=== PATIENT | female | born 1960 | race Caucasian/White ===

== ENCOUNTER 2017-06-09 12:20 | Inpatient (IN) | payer BC, OTHER ==
[~2017-06-09] VITALS: Ht 152.4 cm; Wt 61.2 kg
--- NOTE | ~2017-06-09 | HC ---
[facility] [place] [address] CONSULTATION Name: ADOLFO TAVARES Room #: 427-P [place] IN M.R.#: [id number] Admission: 06/09/17 Attend Phys: James Liang DO Discharge: 06/12/17 Date of : 56 Report #: [id number] THIS REPORT FOR: //name// CC: James May DATE OF SERVICE: 06/09/2017 REASON FOR CONSULTATION: Pneumothorax, rib fractures. IMPRESSION: 1. Pneumothorax. 2. Rib fractures. 3. leukocytosis. 4. Wrist fracture. 5. Lung contusion. PLAN: Incentive spirometry, aerosol p.r.n., followup chest x-ray, pain control. DVT and ulcer prophylaxis. HISTORY OF PRESENT ILLNESS: This is a 57-year-old female who suffered a fall last night, injuring wrist and back pain worsened during the day and is admitted now. Both the chest x-ray and CT chest were done. PAST MEDICL HISTORY: Allergies to CONTRAST DYE and CODEINE. FAMILY HISTORY: Negative for lung disease. SOCIAL HISTORY: Negative tobacco. Positive ETOH, has been in treatment for this and doing better. MEDICATIONS: Meds per chart included Lexapro and Ativan. REVIEW OF SYSTEMS: No fever, chills. Positive shortness of breath and pain. No palpitations. No nausea or vomiting. PHYSICAL EXAMINATION: VITAL SIGNS: Temp 97.8, pulse 82, respirations 18, BP 147/73. EYES: Negative icterus. NECK: Trachea midline. LUNGS: Showed decreased breath sounds. HEART: Regular. ABDOMEN: Bowel sounds present. EXTREMITIES: Showed no edema. Right arm splinted. LABORATORY DATA: CT chest, no contrast, showed multiple right-sided rib [facility] [address] [place] [address] CONSULTATION Name: ADOLFO TAVARES Room #: 427-P [place] IN M.R.#: [id number] Admission: 06/09/17 Attend Phys: James Liang DO Discharge: 06/12/17 Date of : 56 Report #: [id number] fractures and involving lateral and posteromedial ribs. ____ of atelectasis, contusion. BUN 18, creatinine 0.6. White count 11.6, hemoglobin 12.9, platelets 260, no bands. Comminuted distal radial fracture. <ELECTRONICALLY SIGNED> By: Cecilio Paniagua MD 06/14/17 [id number] Cecilio Paniagua MD /nt
--- NOTE | ~2017-06-09 | O ---
[facility] [place] [address] OPERATIVE REPORT Name: ADOLFO TAVARES Room #: 427-P ADM IN M.R.#: [id number] Admission: 06/09/17 Attend Phys: James Liang DO Discharge: Date of : 56 Report #: [id number] THIS REPORT FOR: //name// CC: James May MD DATE OF SERVICE: 06/10/2017 PREOPERATIVE DIAGNOSIS: Right wrist distal radius comminuted fracture. POSTOPERATIVE DIAGNOSIS: Right wrist distal radius comminuted fracture. PROCEDURE: Distal radius open reduction and internal fixation. SURGEON: Clifford Russell MD MENTALLY RETARDED TEACHER: Janet Licona. INDICATIONS FOR MENTALLY RETARDED TEACHER: During the course of operation, placed retraction, and positioning was required. This was afforded to me by my child development assistant. ANESTHETIC: General. INDICATIONS: See hospital H and P. DESCRIPTION OF PROCEDURE: After adequate general anesthesia had been obtained, the patient's right upper extremity was prepped and draped in the usual meticulous sterile fashion. We exsanguinated the limb with an Esmarch bandage, then inflated the tourniquet to 250 torr. An incision was made along the volar aspect of the wrist, just over the flexor carpi radialis. The flexor carpi radialis tendon sheath was divided. We then carefully, using spreading technique, developed the interval, taking the flexor carpi radialis and neurovascular bundle radially and the remaining soft tissues ulnarward. Blunt dissection was used to get down to the pronator quadratus. This was then released on the radial aspect and elevated in an ulnarward direction. The fracture was identified. It was then reduced. AquaMed plate was then applied. We placed a screw in the sliding hole first to ensure we had it in the right position, checked in 2 planes and found to be in good position. We placed 3 distal locking screws and then 2 radial styloid locking screws with good fixation of the distal fragment. We checked again in 2 planes and found to be in good position. The wound was then irrigated copiously. The subQ was then closed with 3-0 Monocryl and skin closed with a running subcuticular 2-0 [facility] [address] [place] [address] OPERATIVE REPORT Name: ADOLFO TAVARES PATTERSON Room #: 427-P ADM IN .R.#: [id number] Admission: 06/09/17 Attend Phys: James Liang DO Discharge: Date of : 56 Report #: [id number] Prolene. Steri-Strips were applied and sterile compressive dressing was complied. Tourniquet deflated. By: [id number] Clifford Russell MD /nt
[~2017-06-09 12:20] MED LIST: ATIVAN0.5 MG PO; LEXAPRO20 MG PO
[2017-06-09 12:23] VITALS: BP 133/79
[2017-06-09 15:26] LABS: URINE BILIRUBIN NEGATIVE (Negative); URINE BLOOD 1+ (Negative); URINE COLOR YELLOW; URINE GLUCOSE-RANDOM* NEGATIVE (Negative); URINE KETONES NEGATIVE (Negative); URINE NITRITE NEGATIVE (Negative); URINE PROTEIN (DIPSTICK) NEGATIVE (Negative); URINE UROBILINOGEN 0.2 E.U./dl (0.2-1.0)
[2017-06-09 15:36] LABS: BACTERIA None Seen /HPF (None Seen); CASTS None Seen /LPF (None Seen); CRYSTALS None Seen /LPF (None Seen); SQUAMOUS 0-3 Few /LPF (0-3); URINE RBC 3-10 Few /HPF (0-2); URINE WBC 0-5 Rare /HPF (0-5)
[2017-06-09 15:37] LABS: ABSOLUTE NEUTROPHILS 9.3 thou/uL (1.4-8.2); BASOPHILS 0.6 % (0.0-2.0); EOSINOPHILS 0.1 % (0.0-3.0); HEMATOCRIT 37.7 % (37.0-47.0); HEMOGLOBIN 12.9 gm/dL (12.0-15.0); MCH 32.5 pg (26.0-34.0); MCHC 34.2 g/dL (28.0-37.0); MCV 94.9 fL (80.0-100.0); MONOCYTES 6.7 % (1.0-8.0); PLATELET COUNT 216 thou/uL (150-400); POLYS 79.6 % (36.0-66.0); RBC 3.98 mil/uL (4.20-5.00); RDW 12.4 % (10.5-14.5); WBC 11.6 thou/uL (4.0-11.0)
[2017-06-09 15:40] LABS: MANUAL DIFF NO
[2017-06-09 15:48] LABS: CALCIUM 9.1 mg/dL (8.5-10.1); CREATININE 0.6 mg/dL (0.6-1.0); POTASSIUM 3.5 mmol/L (3.5-5.1)
[2017-06-09 16:16] VITALS: BP 152/88
[2017-06-09 19:15] VITALS: BP 147/73
[2017-06-10 00:23] VITALS: BP 156/65
[2017-06-10 04:58] VITALS: BP 143/78
[2017-06-10 06:31] LABS: ALBUMIN 3.8 g/dL (3.4-5.0); CALCIUM 8.9 mg/dL (8.5-10.1); CREATININE 0.5 mg/dL (0.6-1.0); POTASSIUM 3.3 mmol/L (3.5-5.1); TOTAL BILIRUBIN 0.9 mg/dL (<0.1-1.0); TOTAL PROTEIN 6.1 g/dL (6.4-8.2)
[2017-06-10 07:30] VITALS: BP 134/74
[2017-06-10 15:30] VITALS: BP 128/74
[2017-06-10 19:43] VITALS: BP 150/63
[2017-06-11 03:53] VITALS: BP 131/56
[2017-06-11 07:10] VITALS: BP 144/81
[2017-06-11 15:35] VITALS: BP 148/67
[2017-06-11 20:00] VITALS: BP 120/61
[2017-06-12 04:18] VITALS: BP 148/82
[2017-06-12 08:00] VITALS: BP 99/81
[2017-06-12] MEDS ORDERED: OXYCODONE-APAP1 EAC6 PO (09:03)
[2017-06-12] MEDS ORDERED: VISTARIL 25 MG25 M1 PO (09:04)
[2017-06-12 10:12] VITALS: BP 99/81
== END 2017-06-12 11:39 | disposition home or self-care (01) | DRG 511 ==
LOC: ER 12:20 → 4E 15:24 → EROBS 15:24 → 4E 16:19 → ENTRNSPT 06-12 11:22 → EDTRNSPTSTS 06-12 11:25 → 4E 06-12 11:39
PROVIDERS: Family Medicine; Physician Assistant
PROC: 2W3EX1Z Immobilization of Right Hand using Splint (ICD-10-PCS; principal; 2017-06-09)
PROC: 0PSH04Z Reposition Right Radius with Internal Fixation Device, Open Approach (ICD-10-PCS; 2017-06-10)
DX: S52.501A Unspecified fracture of the lower end of right radius, initial encounter for closed fracture (principal); S22.41XA Multiple fractures of ribs, right side, initial encounter for closed fracture; S27.321A Contusion of lung, unilateral, initial encounter; S27.0XXA Traumatic pneumothorax, initial encounter; F10.10 Alcohol abuse, uncomplicated; W10.8XXA Fall (on) (from) other stairs and steps, initial encounter; Y93.89 Activity, other specified; Y92.89 Other specified places as the place of occurrence of the external cause; Y99.8 Other external cause status; Z88.5 Allergy status to narcotic agent; Z91.041 Radiographic dye allergy status
CPT/HCPCS: 10183; 50010; 50101; 50386; 51736; 55430; 56525; 56527; 57091; 62110; 62900; 70005